=== PATIENT | female | born 1980 ===

== ENCOUNTER → 2020-03-03 18:58 | Outpatient (BNVA) | payer OTHER, SELFPAY | PROVIDERS: Family Provider Nurse Practitioner Family; PCP Nurse Practitioner; Visit Provider Nurse Practitioner Family | DX: Z20.828 Contact with and (suspected) exposure to other viral communicable diseases (principal) | CPT/HCPCS: 87635 ==

== ENCOUNTER → 2020-08-19 08:53 | Outpatient (BNVA) | payer OTHER, SELFPAY | PROVIDERS: Family Provider Nurse Practitioner Family; PCP Nurse Practitioner; Visit Provider Nurse Practitioner Women's Health | DX: Z34.80 Encounter for supervision of other normal pregnancy, unspecified trimester (principal) | CPT/HCPCS: 80307; 81025; 84315; 87086 ==

== ENCOUNTER → 2020-08-25 12:07 | Outpatient (BNVA) | payer OTHER, SELFPAY | PROVIDERS: Family Provider Nurse Practitioner Family; PCP Nurse Practitioner; Visit Provider Obstetrics & Gynecology | DX: O99.212 Obesity complicating pregnancy, second trimester (principal); O09.92 Supervision of high risk pregnancy, unspecified, second trimester; F41.9 Anxiety disorder, unspecified; O34.42 Maternal care for other abnormalities of cervix, second trimester; Z3A.14 14 weeks gestation of pregnancy; Z12.4 Encounter for screening for malignant neoplasm of cervix | CPT/HCPCS: 80307; 82950; 83036; 84315; 84443; 85027; 86592; 86762; 86803; 86850; 86900; 87086; 87340; 87491; 87591; 88175 ==

== ENCOUNTER → 2020-08-28 08:18 | Outpatient (BNVA) | payer OTHER, SELFPAY | PROVIDERS: Family Provider Nurse Practitioner Family; PCP Nurse Practitioner; Visit Provider Obstetrics & Gynecology | DX: Z34.90 Encounter for supervision of normal pregnancy, unspecified, unspecified trimester (principal) | CPT/HCPCS: 82951; 82952 ==

== ENCOUNTER → 2020-09-16 10:18 | Outpatient (BNVA) | payer OTHER, SELFPAY | PROVIDERS: Family Provider Nurse Practitioner Family; PCP Nurse Practitioner; Visit Provider Obstetrics & Gynecology | DX: O16.9 Unspecified maternal hypertension, unspecified trimester (principal) | CPT/HCPCS: 80053; 82570; 84156; 84550 ==

== ENCOUNTER → 2020-11-02 09:44 | Outpatient (BNVA) | payer OTHER, SELFPAY | PROVIDERS: Family Provider Nurse Practitioner Family; PCP Nurse Practitioner; Visit Provider Obstetrics & Gynecology | DX: O16.9 Unspecified maternal hypertension, unspecified trimester (principal); O99.210 Obesity complicating pregnancy, unspecified trimester; Z3A.00 Weeks of gestation of pregnancy not specified | CPT/HCPCS: 80053; 84315; 87077; 87086; 87184 ==

== ENCOUNTER → 2020-11-30 15:13 | Outpatient (BNVA) | payer OTHER, SELFPAY | PROVIDERS: Family Provider Nurse Practitioner Family; PCP Nurse Practitioner; Visit Provider Obstetrics & Gynecology | DX: O09.90 Supervision of high risk pregnancy, unspecified, unspecified trimester (principal); O99.891 Other specified diseases and conditions complicating pregnancy; F41.9 Anxiety disorder, unspecified; Z98.890 Other specified postprocedural states; O34.40 Maternal care for other abnormalities of cervix, unspecified trimester; R82.71 Bacteriuria; O16.9 Unspecified maternal hypertension, unspecified trimester; O99.210 Obesity complicating pregnancy, unspecified trimester | CPT/HCPCS: 82950; 84315; 85025; 87086 ==

== ENCOUNTER → 2020-12-28 08:02 | Outpatient (BNVA) | payer OTHER, SELFPAY | PROVIDERS: Family Provider Nurse Practitioner Family; PCP Nurse Practitioner; Visit Provider Obstetrics & Gynecology | DX: O09.90 Supervision of high risk pregnancy, unspecified, unspecified trimester (principal); O24.419 Gestational diabetes mellitus in pregnancy, unspecified control; R82.90 Unspecified abnormal findings in urine; R82.71 Bacteriuria; O99.891 Other specified diseases and conditions complicating pregnancy; O16.9 Unspecified maternal hypertension, unspecified trimester; O99.210 Obesity complicating pregnancy, unspecified trimester; F41.9 Anxiety disorder, unspecified | CPT/HCPCS: 84315; 87086 ==

== ENCOUNTER 2021-01-25 | Outpatient (CLI) | payer OTHER, SELFPAY | END 2021-01-25 00:01 | disposition home or self-care (01) | LOC: RAD 10-18 10:36 | PROVIDERS: Family Provider Nurse Practitioner Family; PCP Nurse Practitioner; Visit Provider Obstetrics & Gynecology | DX: O09.90 Supervision of high risk pregnancy, unspecified, unspecified trimester (principal) | CPT/HCPCS: 84315; 87081 ==

== ENCOUNTER 2021-02-01 23:28 | Inpatient (IN) | payer OTHER, SELFPAY ==
[2021-02-01] VITALS (27 sets, daily range): BP systolic 128–157; BP diastolic 75–96; PULSE 111–137; RESP 18; TEMP 36.4–36.7; BMI 36.9
[2021-02-01 17:52] LABS: Basophils % 0.3 %; Eosinophils % 0.3 %; Hematocrit 36.8 % (37.0-47.0); Hemoglobin 12.1 g/dL (11.5-15.3); Lymphocytes # 1.4 10^3/uL (0.8-4.8); Lymphocytes % 15.7 %; Mean Corpuscular HGB Conc 32.9 g/dL (30.0-36.0); Mean Corpuscular Hemoglobin 28.1 pg (28.0-34.0); Mean Corpuscular Volume 85.4 fl (81-99); Mean Platelet Volume 10.5 fL (7.4-10.4); Monocytes # 0.6 10^3/uL (0.2-0.9); Monocytes % 6.6 %; Neutrophils # 6.81 10^3/uL (1.8-7.7); Neutrophils % 76.2 %; Nucleated Red Blood Cells % 0 %; Platelet Count 231 10^3/cmm (130-400); Red Blood Count 4.31 10^6/uL (4.1-5.3); White Blood Count 8.9 10^3/uL (4.0-10.0)
[2021-02-01 18:16] LABS: Alanine Aminotransferase 8 U/L (0-33); Albumin Level 3.2 g/dL (3.5-5.2); Alkaline Phosphatase 197 IU/L (35-105); Anion Gap 18.1 (5-19); Aspartate Amino Transferase 17 U/L (0-32); Blood Urea Nitrogen 6 mg/dL (6-20); Calcium 8.8 mg/dL (8.5-10.5); Carbon Dioxide 19 mmol/L (22-29); Chloride 103 mmol/L (98-107); Globulin 2.2 g/dL (1.3-4.6); Glomerular Filtration Rate 138.1 mL/min (90-130); Glucose 160 mg/dL (65-115); Osmolality Calculated 283 mOsm/kg (285-295); Potassium 4.1 mmol/L (3.5-5.1); Sodium 136 mmol/L (136-145); Total Bilirubin 0.3 mg/dL (0.15-1.2); Total Protein 5.4 g/dL (6.6-8.7); Uric Acid 4.3 mg/dL (2.4-5.7)
[2021-02-01 18:30] LABS: Urine Appearance SL Hazy (CLEAR); Urine Color Yellow (Yellow); Urine Creatinine 137 mg/dL (28-217); pH Urine 5 (5-7)
[2021-02-01 18:31] LABS: Add Urine Microscopic? YES; Bilirubin Urine Neg (Negative); Blood Urine 3+ (Negative); Glucose Urine UA Trace (Normal); Ketones Urine 1+ (Negative); Leukocyte Esterase Urine Trace (Negative); Nitrate Urine Negative (Negative); Protein Urine 1+ (Negative); UPRO/UCREAT Ratio 0.66 mg/mg CR; Urine Protein Random 91 mg/dL; Urobilinogen Urine Norm (Negative)
[2021-02-01 18:42] LABS: Add Urine Culture? No; Bacteria Urine 2+ /hpf; RBC Urine 0-4 /hpf (0-2)
--- NOTE | 2021-02-01 20:00 | PC.NURSE ---
RN at bedside, patient educated on lab values and that MD has given orders to admit patient, start magnesium protocol, give cytotec for labor induction, and to monitor vitals. Patient states that she does not want to be admitted at this time, does not want to start medications to induce labor at this time either. Education provided about reasons as to why MD has ordered this plan of care and the risks of not starting the magnesium. Patient verbalizes understanding and requests time to discuss options with in private.
--- NOTE | 2021-02-01 23:02 | PC.NURSE ---
Patient in OB 3
[2021-02-01 23:20] LABS: Glucose Point of Care 102 mg/dL (70-110)
--- NOTE | 2021-02-01 23:20 | PC.NURSE ---
RN at bedside, plan of care discussed with patient and at this time. Education provided as to why magnesium is to be started as soon as possible to help prevent seizure or stroke from the elevated blood pressures. Patient verbalized understanding but refuses to have the magnesium started at this time due to feeling fine . Patient also educated on being induced to speed up delivery to help decrease the risk of pre-eclampsia turning into eclampsia. Patient states that she does not want to take any medications at this time to induce labor and would like to wait and see if her body will make cervical change on its own with the contractions that she is currently having. Patient educated that even after 2.5 hours there was no cervical change that was made and that medication to induce labor is recommended at this time. Patient verbalizes understanding.
[2021-02-02] VITALS (80 sets, daily range): BP systolic 125–169; BP diastolic 68–102; PULSE 88–129; RESP 16–23; TEMP 36.3–36.6; O2SAT 95–100
--- NOTE | 2021-02-02 00:33 | PC.NURSE ---
Addendum entered by Analy Shelton RN 02/02/21 00:38: Conversation between this RN and patient 02/01/21 [id number]. Original Note: RN at bedside, patient states that she has decided that she is willing to be admitted but that she does not want magnesium started at this time or be given any medications to be induced. Monitors removed and patient up to void and ambulate to OB 3.
[2021-02-02] MEDS: diphenhydrAMINE 25 mg Capsule PO (01:03)
[2021-02-02] MEDS: acetaminophen 500 mg Tablet PO (01:03)
[2021-02-02] MEDS: dextrose 5%-lactated ringers 1,000 ML 125 ML IV ×3 (01:05→16:37)
--- NOTE | 2021-02-02 01:40 | PC.NURSE ---
RN at bedside for SVE. No cervical change has been made in [address] Patient educated that Dr[address] Sheikh recommends that medication be give, either cytotec or Pitocin, to induce labor and patient to be started on magnesium. Patient educated that lab values will only continue to become more elevated, blood pressures continue to stay elevated and could continue to become higher and in the severe range which would place the patient at a higher level for a seizure or stroke especially without the magnesium on board. Patient states that she is not sure what she would like to do at this point in time and is considering leaving AMA. Patient educated that if she decides to leave AMA that her insurance may not cover her hospital stay, patient verbalizes understanding and will call out to RN once decision has been made.
--- NOTE | 2021-02-02 01:57 | PC.NURSE ---
RN at bedside to adjust ultrasound. Patient asking RN if pitocin would be initiated at a low dose. RN educated that Dr. Parson had ordered low dose pitocin. Patient states that she would like to start the low dose pitocin.
[2021-02-02] MEDS: oxytocin 30 UNIT/500 ML BAG IV (02:16)
[2021-02-02 03:36] LABS: Glucose Point of Care 156 mg/dL (70-110)
[2021-02-02] MEDS: alum-mag-hydroxide-sime 30 mL UDC PO (04:07)
[2021-02-02 06:13] LABS: Glucose Point of Care 132 mg/dL (70-110)
[2021-02-02 08:18] LABS: Glucose Point of Care 131 mg/dL (70-110)
[2021-02-02 12:17] LABS: Glucose Point of Care 140 mg/dL (70-110)
[2021-02-02 16:26] LABS: Glucose Point of Care 111 mg/dL (70-110)
[2021-02-02] MEDS: calcium carbonate 500 mg Chew Tablet PO (19:52)
[2021-02-02] MEDS: hyDROXYzine 25 mg Capsule 50 MG PO (19:55)
--- NOTE | 2021-02-02 19:58 | PC.NURSE ---
RN at bedside discussing plan of care with patient. Patient asking RN if magnesium will help to bring blood pressure down and asking if its necessary. Education provided about pre-eclampsia possibly turning into eclampsia without magnesium and possibility of stroke. Reiterated to patient that Dr. Parson and Dr. Pittman have both recommended magnesium to be in the best interest of the patient due to concerns about elevated blood pressures and elevated protein creatinine ratio. Patient also requesting information about a asking RN how that would look for her and if she would have to be put to sleep. RN discusses that is the last resort if all other efforts are exhausted and that general anesthesia is a last resort unless it is an emergency situation. Patient requests more time to speak with her about the magnesium when he returns before she makes a decision.
[2021-02-02 20:00] LABS: Glucose Point of Care 111 mg/dL (70-110)
[2021-02-02] MEDS: magnesium sulfate premix 4 GM/100 ML PREMIX IV (22:36)
[2021-02-02] MEDS: magnesium sulfate premix 2 GM/50 ML PIGGYBACK IV (22:54)
[2021-02-02] MEDS: magnesium sulfate premix 20 GM/500 ML BAG IV (23:13)
[2021-02-02 23:24] LABS: Glucose Point of Care 111 mg/dL (70-110)
[2021-02-03] VITALS (209 sets, daily range): BP systolic 103–161; BP diastolic 51–99; PULSE 87–141; RESP 15–22; TEMP 36.8–37; O2SAT 90–100
--- NOTE | 2021-02-03 00:23 | PC.NURSE ---
RN to patients room for magnesium assessments. Patient is tearful, respiratory rate of 23, and states to nurse that she wants the urinary catheter taken out. Educated on importance of hourly urine output while on magnesium. Patient remains adamant that catheter be removed. Catheter removed. Tip intact. Physician notified.
--- NOTE | 2021-02-03 01:59 | PC.NURSE ---
RN at bedside for magnesium checks. Patient denies need to void at this time. Will reassess with next check.
[2021-02-03] MEDS: dextrose 5%-lactated ringers 1,000 ML 40 ML IV (02:48)
--- NOTE | 2021-02-03 04:00 | PC.NURSE ---
RN at bedside for magnesium checks. Patient denies need to void at this time. Will reassess with next check.
[2021-02-03 04:29] LABS: Glucose Point of Care 103 mg/dL (70-110)
--- NOTE | 2021-02-03 05:58 | PC.NURSE ---
RN at bedside for magnesium checks. Patient denies need to void at this time. Will reassess with next check.
[2021-02-03] MEDS: lactated ringers 1,000 ML 999 ML IV (06:52)
--- NOTE | 2021-02-03 07:00 | PC.NURSE ---
RN at bedside for magnesium checks. Patient denies need to void at this time. Will reassess with next check.
[2021-02-03] MEDS: fentaNYL 50 mcg/mL INJ 2mL IVP ×2 (07:01→08:31)
--- NOTE | 2021-02-03 08:33 | P.PCNOB_ITS ---
Delivery Note: Date of delivery: February 03, 2021 Pre-delivery diagnoses: GDM, preeclampsia, iup at 38 weeks Post-delivery diagnoses: same Procedure: Op report anesthesia: None Delivering Physician: dayna Estimated blood loss (mL): 40 Findings: term female in the CAREN presentation Pre-Delivery Course: The patient was admitted from clinic for preeclampsia. Her was complicated by GDM and AMA. The patient refused cytotec induction. She also initially refused magnesium sulfate for seizure prophylaxis. The patient was started on pitocin. She had minimal cervical change. It was thought that she had SROM around 1600, but there was no further leaking of fluid after that and the bag of water could be palpated on exam. The pitocin reached a maximum of 21 mU and still no cervical change. The pitocin was stopped and then restarted an hour later. Early in the Am on hospital day #2, the patient finally agreed to having magnesium sulfate started. She had a catheter placed and then demanded that it be removed due to discomfort. Her urine output was monitored through bedpan. She had gross SROM around 0400 hours and it was clear. She became uncomfortable at this time and the pitocin was discontinued. Her cervix was now 3/75/-1. She advanced quickly after that and at around 0800 hours, had complete cervical dilation. She was waiting for an epidural, but anesthesia was busy with surgeries. Delivery: The patient had complete cervical dilation and began to push. The head delivered in the CAREN position over an intact perineum under no anesthesia. The nose and mouth were bulb suctioned. The shoulders and body delivered atraumatically. The baby was placed onto the mother's abdomen. The cord was clamped and cut. Cord blood was obtained. The placenta delivered spontaneously. It was inspected and found to be intact. Inspection of the perineum revealed no repair was required. Estimated blood loss 40 mL. Apgars on baby were 9 at 1 minute and 9 at 5 minutes. Weight of baby is 7 pounds 10 ounces. Mother and baby were stable post delivery. Post-Delivery Status: mother and baby are doing well. 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
[2021-02-03] MEDS: magnesium sulfate premix 20 GM/500 ML BAG IV ×2 (08:36→18:05)
[2021-02-03] MEDS: oxytocin 30 UNIT/500 ML BAG 600 UNIT IV (08:48)
--- NOTE | 2021-02-03 10:18 | PC.NURSE ---
Patient voided during pushing.
[2021-02-03] MEDS: prenatal vitamin Capsule 1 CAP PO (11:16)
[2021-02-03] MEDS: docusate sodium 100 mg Capsule PO ×2 (11:16→18:05)
[2021-02-03 11:52] LABS: Magnesium Level (OB Only) 4.2 mg/dL (5.0-7.5)
[2021-02-03] MEDS: acetaminophen 325 mg Tablet 650 MG PO (18:07)
[2021-02-03 19:10] LABS: Magnesium Level (OB Only) 4.7 mg/dL (5.0-7.5)
[2021-02-04] VITALS (10 sets, daily range): BP systolic 129–159; BP diastolic 75–101; PULSE 74–101; RESP 14–18; TEMP 36.4–36.9; O2SAT 95–99
[2021-02-04 00:26] LABS: Hematocrit 32.9 % (37.0-47.0); Mean Corpuscular HGB Conc 33.4 g/dL (30.0-36.0); Mean Corpuscular Hemoglobin 28.4 pg (28.0-34.0); Mean Platelet Volume 10.3 fL (7.4-10.4); Platelet Count 214 10^3/cmm (130-400); Red Blood Count 3.87 10^6/uL (4.1-5.3); Red Cell Distribution Width 13.3 % (12.1-15.1); White Blood Count 13.3 10^3/uL (4.0-10.0)
[2021-02-04] MEDS: dextrose 5%-lactated ringers 1,000 ML 50 ML IV (01:44)
[2021-02-04 01:50] LABS: Magnesium Level (OB Only) 4.6 mg/dL (5.0-7.5)
--- NOTE | 2021-02-04 02:00 | PC.NURSE ---
Rn at bedside at 0100, pt needed to void. RN put bedpan under pt to void, pt had voided a little on the bed and wanted the sheet changed and new mesh underwear on. Pt wanted to stand beside the bed to change underwear, RN advised pt not to stand and stated that we could change the underwear while the pt stayed in the bed. The pt insisted on standing and stated I will be ok, I wont fall. Rn again advised not to get out of bed. pt then sat on side of bed then stood, RN assisted with changing pts underwear. Pt then sat back down. RN was bedside until pt was fully laid down back in bed. RN explained that it was dangerous for pt to get out of bed and advised pt not to get out of bed. Pt stated oh I wont get out of bed
[2021-02-04] MEDS: magnesium sulfate premix 20 GM/500 ML BAG IV (04:12)
[2021-02-04 07:19] LABS: Magnesium Level (OB Only) 4.7 mg/dL (5.0-7.5)
--- NOTE | 2021-02-04 11:29 | PM.DCS ---
Discharge Providers Date of Admission: 02/01/21 23:28 Date of Discharge: February 04, 2021 Attending Provider at Admission: Hakeem Parson MD Attending Provider at Discharge: Herrera Wong MD Primary Care Provider: SHY Lino Reason for Visit Reason for Visit: [facility] Hospital Course Hospital Course he patient was admitted from clinic for preeclampsia. Her was complicated by GDM and AMA. The patient refused cytotec induction. She also initially refused magnesium sulfate for seizure prophylaxis. The patient was started on pitocin. She had minimal cervical change. It was thought that she had SROM around 1600, but there was no further leaking of fluid after that and the bag of water could be palpated on exam. The pitocin reached a maximum of 21 mU and still no cervical change. The pitocin was stopped and then restarted an hour later. Early in the Am on hospital day #2, the patient finally agreed to having magnesium sulfate started. She had a catheter placed and then demanded that it be removed due to discomfort. Her urine output was monitored through bedpan. She had gross SROM around 0400 hours and it was clear. She became uncomfortable at this time and the pitocin was discontinued. Her cervix was now 3/75/-1. She advanced quickly after that and at around 0800 hours, had complete cervical dilation. She was waiting for an epidural, but anesthesia was busy with surgeries. Delivery: The patient had complete cervical dilation and began to push. The head delivered in the CAREN position over an intact perineum under no anesthesia. The nose and mouth were bulb suctioned. The shoulders and body delivered atraumatically. The baby was placed onto the mother's abdomen. The cord was clamped and cut. Cord blood was obtained. The placenta delivered spontaneously. It was inspected and found to be intact. Inspection of the perineum revealed no repair was required. Estimated blood loss 40 mL. Apgars on baby were 9 at 1 minute and 9 at 5 minutes. Weight of baby is 7 pounds 10 ounces. Mother and baby were stable post delivery. The patient received magnesium sulfate for over 24 hours post . She she two elevated blood pressures in the 150's/90's. most were in the 140/90 range. She was started on Nifedipine XL 30 mg daily and HCTZ daily. She was given strict preeclampsia precautions and she will follow up in 1 week for Bp check. She will also check her blood pressure at home. She was requesting discharge and stated that her blood pressure is only up because she is anxious and wants to leave. Physical Exam Narrative: EXAM NARRATIVE: The patient is doing well this morning. no concerns or complaints. She wants to go home and is very anxious to do so. We discussed home meds for her blood pressure. She agrees to take them. Const: COMMON NORMALS: no acute distress, patient oriented x3, no limitations, healthy appearing, alert and well nourished GENERAL APPEARANCE: cooperative, comfortable, well kempt and well developed ORIENTATION/CONSCIOUSNESS: Yes awake, Yes oriented to person, Yes oriented to place and Yes oriented to time Resp: COMMON NORMALS: normal respiratory effort EFFORT & INSPECTION: Yes able to speak in complete sentences Extremity: COMMON NORMALS: no calf tenderness Neuro: COMMON NORMALS: patient oriented x3 SENSORIUM/ORIENTATION: Yes alert, Yes oriented to person, Yes oriented to place and Yes oriented to time Psych: APPEARANCE: Yes well kempt Urinary Catheter Management^: Cardona: Cath Placed During This Visit: yes, but has since been removed by the nurse Reason for Continuing Indwelling Catheter: Accurate Measurement of Urinary Output in Critically Ill Patients Urinary Catheter Date of Insertion: 02/02/21 Urinary Catheter Time of Insertion: 23:00 Date Urinary Catheter Removed: 02/02/21 Time Urinary Catheter Discontinued: 23:58 Discharge Data Data Completed and Pending: Labs from last 24 hours 02/04/21 02/04/21 02/04/21 06:21 00:13 00:13 WBC 13.3 H RBC 3.87 L Hgb 11.0 L Hct 32.9 L MCV 85.0 MCH 28.4 MCHC 33.4 RDW 13.3 Plt Count 214 MPV 10.3 Magnesium 4.7 L* 4.6 L* 02/03/21 02/03/21 18:00 11:15 WBC RBC Hgb Hct MCV MCH MCHC RDW Plt Count MPV Magnesium 4.7 L* 4.2 L* Vitals: Last Vital Signs Temp 98.1 F 02/04/21 07:04 Pulse 91 02/04/21 07:04 Resp 16 02/04/21 07:04 BP 157/93 08/26/21 07:04 Pulse Ox 98 02/04/21 07:04 Discharge Plan Discharge Patient Disposition: Home Condition: Stable Prescriptions: New Procardia XL 30 mg tablet extended release 24hr 30 mg PO DAILY Qty: 30 RF: 2 hydrochlorothiazide 25 mg tablet 25 mg PO DAILY Qty: 30 RF: 0 Continued prenat.vits,yancy,[id number] Tablet 1 tab PO DAILY RF: 0 (DME) breast pump [Pump In Style Advanced] Device See Rx Instructions .MEDSUPPLY Qty: 1 RF: 0 (DME) blood-glucose meter [Advanced Glucose Meter] Misc See Rx Instructions .Route Qty: 1 RF: 0 (DME) Advanced Gluc Meter Test Strip Strip See Rx Instructions .Route Qty: 200 RF: 0 (DME) lancets [Glucocom Lancets] 28 gauge misc See Rx Instructions .Route Qty: 100 RF: 0 Discharge Orders: Discharge Order (Routine); Ordered 02/04/21 Ordered By: Melyssa Pittman Patient Instructions: Depression (GEN), Pre-eclampsia and Eclampsia (DC), Bleeding (DC), OB Discharge Report, OB Food/Drug Interaction Guide, Opioid Safety, OB Home Care, OB Proud Parent Packet, OB Vaginal Deliveries - [facility] Discharge Attestations Time Spent in Discharge Care*: less than 30 min Quality Metrics Clinical Quality Measures During this hospital stay, did patient experience: None Coding Level of Care Code Acute Chg FW DC note
== END 2021-02-04 15:03 | disposition home or self-care (01) | DRG 807 ==
LOC: OPOB 02-02 00:30 → OBGYN 02-02 00:30
PROVIDERS: Obstetrics & Gynecology; Admitting Provider Obstetrics & Gynecology; Family Provider Nurse Practitioner Family; PCP Nurse Practitioner; Visit Provider Obstetrics & Gynecology
DX: O11.4 Pre-existing hypertension with pre-eclampsia, complicating childbirth (principal); Z37.0 Single live birth; O24.420 Gestational diabetes mellitus in childbirth, diet controlled; O99.344 Other mental disorders complicating childbirth; F41.9 Anxiety disorder, unspecified; Z3A.38 38 weeks gestation of pregnancy; O99.214 Obesity complicating childbirth
CPT/HCPCS: 36415; 36416; 51702; 59025; 59409; 80053; 81001; 82570; 82962; 83735; 84156; 84315; 84550; 85025; 85027; 96372; 98960; 99211; J1815; J3010; J3475

== ENCOUNTER 2024-09-09 08:53 | Outpatient (CLI) | payer OTHER, MEDICAID, SELFPAY ==
--- NOTE | 2024-09-09 09:01 | XR_ITS ---
WS: [id number] XR acute abdomen series [id number] REASON FOR EXAM: HEMATURIA/L FLANK PAIN FINDINGS: No significant chest abnormality. No free air or retroperitoneal air. No organomegaly or mass identified. No urinary tract calculi. Vascular calcifications in the pelvis. Normal lumbar spine and bony pelvis. XR/XR acute abdomen series [id number] IMPRESSION: No urinary tract calculi. No acute abnormality.
== END 2024-09-09 08:54 | disposition home or self-care (01) ==
LOC: LAB 08:57 → RAD 09:00
PROVIDERS: PCP Nurse Practitioner; Visit Provider Nurse Practitioner Family
DX: R31.9 Hematuria, unspecified (principal); R10.9 Unspecified abdominal pain; R93.89 Abnormal findings on diagnostic imaging of other specified body structures
CPT/HCPCS: 74022